=== PATIENT | female | born 1985 | race Caucasian/White ===

== ENCOUNTER 2017-12-27 15:15 | Inpatient (IN) | payer MEDICAID, SELFPAY ==
[2017-12-27] VITALS (13 sets, daily range): BP systolic 93–125; BP diastolic 52–79; PULSE 65–95; RESP 16–18; TEMP 35.7–36.9; O2SAT 98–99; BMI 25.3
[2017-12-27 15:13] LABS: ROM Internal Control Test YES-OK TO RESULT pt. (Internal QC)
[2017-12-27 15:14] LABS: ROM Patient Test POSITIVE (Negative)
[2017-12-27] MEDS: Lactated Ringers 1,000 ML 50 ML IV ×2 (15:27→16:27)
[2017-12-27 15:49] LABS: Absolute Lymphocyte Count 3.49 X10^3/ul (0.83-4.51); Absolute Neutrophil Count 11.6 X10^3/uL (2.0-7.7); Basophil# 0.03 X10^3/uL; Basophil% 0.2 % (0-1); Eosinophils% 1.2 % (0-5); Hematocrit 30.5 % (37-47); Hemoglobin 9.6 g/dl (12.0-15.0); Lymphocyte # 3.49 X10^3/ul (4.0); Lymphocyte % 21.5 % (19-41); Mean Corp Hgb Conc 31.5 g/gl (32-36); Mean Corpuscular Hgb 28.1 pg (27.0-32.0); Mean Corpuscular Volume 89.2 fL (81-99); Mean Platelet Vol. 9.6 fl (6.2-12.0); Monocyte# 0.84 X10^3/uL; Monocyte% 5.2 % (0-10); Neutrophil # 11.58 X10^3/uL (2.7-7.7); Neutrophil % 71.2 % (47-70); Platelet Count 381 K/mm3 (150-450); RBC Distribution Width SD 55.1 fl (35.1-43.9); Red Blood Count 3.42 M/mm3 (4.2-5.4); White Blood Count 16.3 K/mm3 (4.4-11.0)
[2017-12-27 15:53] LABS: POSITIVE COUNT NO; POSITIVE DIFFERENTIAL NO; POSITIVE MORPHOLOGY NO
--- NOTE | 2017-12-27 16:01 | PCM.HP.OB ---
History Date of Admission: 12/27/17 Final JOHANA: 01/17/18 Gestational age: 37 Weeks and 0 Days History of this : Patient reports a couple visits at [facility]. She reports an US at 33wks that gave her an EDC of 01/17/18. She thinks that she had another US earlier in the too. She reports 4 prior SVDs without complications. Pertinent Past Medical History: Asthma - not on meds Denies any surgeries Allergies ciprofloxacin [From Cipro] Allergy (Verified 12/27/17 15:25) Hives Penicillins Allergy (Verified 12/27/17 15:23) Unknown pt states as child Current Medications Acetaminophen (Tylenol) 325 - 650 mg PO Q4H PRN PRN PRN Reason: PAIN OR FEVER >100.4F Al Hydroxide/Mg Hydroxide (Mylanta Ii) 15 - 30 ml PO Q4H PRN PRN PRN Reason: INDIGESTION Citric Acid/Sodium Citrate (Bicitra) 30 ml PO UD PRN Lactated Ringer's () 1,000 mls @ 50 mls/hr IV .Q20H JOHNNY Nalbuphine HCl (Nubain) 5 - 10 mg IV Q3H PRN PRN PRN Reason: PAIN (4-10/10) Ondansetron HCl (Zofran) 4 mg IV Q8H PRN PRN PRN Reason: NAUSEA Promethazine HCl (Phenergan (Ll)) 6.25 - 12.5 mg IV Q4H PRN PRN; Protocol PRN Reason: IF NAUSEA PERSISTS Sodium Chloride () 5 - 15 ml IV UD JOHNNY Smoking Status: Current every day smoker Alcohol: None Drug Use: none - other than prescribed norco Number of Fetus(es): 1 Physical Exam General: Alert, Oriented x3 Abdomen: Soft, Non Tender, Non-Distended Presentation: Cephalic - compound presentation as hands in front Cervix Dilation (cm): 7 Station: -3 - membranes palpable Effacement (%): 70 Assessment/Plan 32yo female at 37 weeks in labor Admit to L&D Presentation - compound at this time, will attempt to gently move hands behind head once epidural in place Pain - getting epidural not Scant PNC - PNB, utox, social work consult GBS unknown - rapid GBS sent, patient negative for risk factors EFW - less than 4500g, patient with adequate pelvis Routine care
[2017-12-27 16:31] LABS: International Normalized Ratio 0.9; Prothrombin Time (Protime)PT. 12.3 SECONDS (11.7-14.9)
[2017-12-27 16:32] LABS: Partial Thromboplast Time 28.7 Seconds (24.1-36.2)
[2017-12-27] MEDS: Oxytocin 30 units/NS 500 ml 30 UNITS/500 ML IV.SOLN 167 UNITS IV (16:44)
[2017-12-27 17:07] LABS: Group B Strep DNA By PCR Negative (Negative); Internal Control PASS; Probe Check PASS; Specimen Processing Control PASS
--- NOTE | 2017-12-27 17:38 | OP.PCM_ITS ---
Delivery Final JOHANA: 01/17/18 Gestational age: 37 Weeks and 0 Days Indications: Patient presented in labor & compound presentation was noted as hands were in front of the head. Patient received epidural. A deceleration in the fht's was noted. When patient was checked the head was no longer palpated. Patient was taken to the OR where US showed oblique/compound presentation. Fht's were 90's-120's. Decision made to proceed with section. Indications for : Malpresentation, Nonreassuring Status Description of Procedure: Patient taken to OR where epidural anesthesia was dosed. She was prepped and draped in normal sterile fashion in a dorsal lithotomy position with a leftward tilt. After ensuring adequacy of anesthesia the Pfannensteil skin incision was made and carried through to the underlying fascia with a scalpel. The fascia was incised in the midline and carried laterally with the Ramos scissors. The rectus muscles were in the midline and the peritoneum was entered bluntly. The bladder flap was dissected down carefully with the Metzenbaum scissors and blunt dissection. The uterus was incised in a transverse fashion and then incision extended with cephalocaudad traction. The fetus was oblique with hands in front of the head. The head was gently brought to the uterine incision and the hands were gently moved. The head was brought to the incision in the flexed position and with good fundal pressure the head easily delivered. Gentle traction placed on head to allow delivery of anterior & posterior shoulders. No excess traction placed on head. The body delivered easily. The 3VC cord was clamped and cut. The was handed off to the waiting RN. The placenta was delivered w/ gentle traction and fundal massage and the uterus was exteriorized and cleared of all clots and debris. The uterine incision was closed with 1 vicryl suture in a running locked fashion. The bovie was used to further obtain further hemostasis of the uterine incision. A second imbricating layer of monocryl was placed. The uterus was returned to the peritoneal cavity. The pelvis was irrigated & then cleared of all clots and debris. The uterine incision was reexamined and found to be hemostatic. A stable hematoma on the right side of the uterus (near the incision) was noted & observed to be stable during the procedure. Some yuki was placed over the uterine incision due to the denuded areas. The parietal peritoneum was reapproximated with running 1 vicryl suture. The fascia was closed with looped PDS suture in a running standard fashion. The subcutaneous tissue was examined & any bleeding bovie cauterized. The subcutaneous tissue was reapproximated with 3-0 vicryl suture. The skin was closed in a subcuticular fashion by the MEDICARE BILLER with me present in the labor and delivery suite. I performed the remainder of the procedure w/ assistance. Amniotic Membrane Rupture Type: Spontaneous Amniotic Fluid Description: Clear Placenta Disposition: [facility] Specimen(s) sent to pathology: placenta Drain: Gutierrez to straight drain Fluids Replaced: 1500ml Cord Entanglement: None Cord Vessel Description: 3 Vessels Esitmated Blood Loss (ml): 800ml Infant Gender: Female (1 minute): 9 (5 minute): 9 Delayed cord clamping: No Pre-op Antibiotic Given: Ancef 2 grams IV x1 Complications: None
[2017-12-27] MEDS: Lactated Ringers 1,000 ML 100 ML IV (17:50)
--- NOTE | 2017-12-27 18:02 | PLAC_PTH ---
PATIENT: CLINT DONALDSON LOC: [facility] U#:[id number] AGE/SX: 32/F ROOM: WP011 RE12/27/[address]: Dr. Sonia Victoria MD : 1985 BED: 1 DIS: 12/30/2017 SPEC #: [id number] RECD: 12/27/17 19:24 STATUS: JOHN HELEN #: [id number] FLORY: 12/27/17 18:[address]: Sonia Victoria DEPT: SURGICAL PATHOLOGY RECD BY: Rebecca Garcia ENTERED: 12/28/17 09:13 SP TYPE: PLACENTA OTHR DR: Jojo Primary Care Phys Tissues: Placenta, NOS Procedures: Surgery Specimen Level V HEADER OPERATION: Primary section PRE-OP DIAGNOSIS: malpresentation, nonreassuring status TISSUE SUBMITTED: Placenta MICROSCOPIC DIAGNOSIS Placenta: Placental disc - third trimester placenta (400 gm). - Multiple areas of infarction (largest measuring 2.0 cm in greatest dimension). Membranes - no pathologic diagnosis. Umbilical cord - three blood vessels and no pathologic diagnosis. SJ:ulises 12/30/17 MICROSCOPIC DESCRIPTION Slides are reviewed. GROSS DESCRIPTION SPECIMEN: PLACENTA / CLINICAL INFORMATION: A. Weight: 2.387 kg B. Gestational Age: 37 weeks C. Sex: Female PLACENTAL WEIGHT (POST FIXATION): 400 gm PLACENTAL DIMENSIONS: 17 x 15 x 3 cm PLACENTAL SHAPE: Usual ovoid PLACENTAL WEIGHT FOR GESTATIONAL AGE: Within 10-99th percentile MEMBRANES - Present A. Insertion: Marginal B. Site of rupture from edge: 7 cm from edge of placental disc C. Color of membrane: Tenorio, mucoidy D. Abnormalities: None UMBILICAL CORD - Present A. Color: Tenorio-ocampo B. Insertion: Paracentral C. Length: 28 cm D. Diameter: 1 cm E. Number of vessels: Three F. Abnormalities: None PLACENTAL DISC - Present A. Color of surface: Tenorio-ocampo B. surface abnormalities: None C. Maternal cotyledons: Intact with minimal tears D. Attached retro placental clot: No clot E. Cut surface: Dark red and spongy F. Lesions: Sections reveal multiple indurated areas, the largest measuring 1.5 cm in greatest dimension. A focal firm area is also noted measuring 2 cm in greatest dimension. One of the areas appears to be congested. G. Separate clot: Absent SECTIONS SUBMITTED: 1. Membrane roll 2. Cord, peripheral indurated area 3. Cord, end and two lesions 4. Firm area, body of placenta including and maternal surfaces 5. Placental disc, and maternal surfaces, lesion 6. Placental disc, and maternal surfaces, two lesions 7. Body of placenta including maternal and surface and congested hemorrhagic area. KANDICE:ulises 12/29/17 TC:5 CPT: 33766
--- NOTE | 2017-12-27 18:46 | NURSING ---
Pre-op Ancef [address] Stewart prior to ; physician over-ride; PNC allergy as a child.
[2017-12-27 20:37] LABS: Chlamydia Trachomatis by PCR Negative (Negative); Neisserai gonorrhoeae by PCR Negative (Negative); Probe Check PASS; Sample Adequacy Control PASS; Specimen Processing Control PASS
[2017-12-27] MEDS: Ketorolac 30 MG/ML Syringe IV (23:21)
[2017-12-28] VITALS (17 sets, daily range): BP systolic 102–126; BP diastolic 54–74; PULSE 88–105; RESP 14–18; TEMP 36.3–37.1; O2SAT 18–99
[2017-12-28] MEDS: Lactated Ringers 1,000 ML 100 ML IV (02:26)
--- NOTE | 2017-12-28 04:36 | NURSING ---
Epidural catheter removed, blue tip intact.
[2017-12-28] MEDS: Ketorolac 30 MG/ML Syringe IV ×4 (05:18→23:12)
[2017-12-28 05:41] LABS: Hematocrit 24.6 % (37-47); Hemoglobin 7.8 g/dl (12.0-15.0); Mean Corp Hgb Conc 31.7 g/gl (32-36); Mean Corpuscular Hgb 28.5 pg (27.0-32.0); Mean Corpuscular Volume 89.8 fL (81-99); Mean Platelet Vol. 9.3 fl (6.2-12.0); Platelet Count 323 K/mm3 (150-450); RBC Distribution Width CV 17.1 % (11.6-14.6); Red Blood Count 2.74 M/mm3 (4.2-5.4); White Blood Count 13.7 K/mm3 (4.4-11.0)
[2017-12-28 05:43] LABS: Scan Indicated on CBC? Y/N NO
--- NOTE | 2017-12-28 08:50 | PCM.PN.OB ---
Subjective: c/o some pain, no N/v. tired, No CP/SOB - Physical Exam General: Alert, Cooperative, No apparent distress Abdomen: Soft, Distended - moderatly, softly, Tender - appropriately Skin: Incision - bandage clean, dry adn intact Vital Signs Temp Pulse Resp BP Pulse Ox 98.4 F 99 16 104/74 97 12/28/17 08:27 12/28/17 08:27 12/28/17 08:27 12/28/17 08:27 12/28/17 08:27 Oxygen Delivery Method Room Air Weight: 62.9 kg Body Mass Index (BMI) 25.3 Intake and Output for Last 24 Hours 12/26/17 12/27/17 12/28/17 22:59 23:59 23:59 Intake Total 1651 / 1651 Output Total 650 / 650 Balance 1001 / 1001 Laboratory Tests Past 24 Hrs 12/27/17 12/27/17 12/27/17 15:00 15:25 15:25 WBC 16.3 H RBC 3.42 L Hgb 9.6 L Hct 30.5 L MCV 89.2 MCH 28.1 MCHC 31.5 L RDW 17.0 H RDW Differential 55.1 H Plt Count 381 MPV 9.6 Immature Gran % (Auto) 0.700 Neut % (Auto) 71.2 H Lymph % (Auto) 21.5 [place] % (Auto) 5.2 Eos % (Auto) 1.2 Baso % (Auto) 0.2 Absolute Neuts (auto) 11.6 H Absolute Lymphs (auto) 3.49 Total Counted Not Reportable PT INR APTT Vag Amniotic Fld Detect POSITIVE H RPR Chlam trachomat DNA PCR Hep Bs Antigen Hepatitis C Ab (EIA) Hepatitis C Comment HIV 1&2 Antibody N.gonorrhoeae DNA (PCR) Rubella IgG Antibody Pending Group B Strep DNA Specimen Comment Blood Type Antibody Screen 12/27/17 12/27/17 12/27/17 15:25 15:25 15:25 WBC RBC Hgb Hct MCV MCH MCHC RDW RDW Differential Plt Count MPV Immature Gran % (Auto) Neut % (Auto) Lymph % (Auto) [place] % (Auto) Eos % (Auto) Baso % (Auto) Absolute Neuts (auto) Absolute Lymphs (auto) Total Counted PT INR APTT Vag Amniotic Fld Detect RPR Pending Chlam trachomat DNA PCR Hep Bs Antigen Pending Hepatitis C Ab (EIA) Pending Hepatitis C Comment Pending HIV 1&2 Antibody N.gonorrhoeae DNA (PCR) Rubella IgG Antibody Group B Strep DNA Specimen Comment Not Reportable Blood Type Antibody Screen 12/27/17 12/27/17 12/27/17 15:25 15:25 15:25 WBC RBC Hgb Hct MCV MCH MCHC RDW RDW Differential Plt Count MPV Immature Gran % (Auto) Neut % (Auto) Lymph % (Auto) [place] % (Auto) Eos % (Auto) Baso % (Auto) Absolute Neuts (auto) Absolute Lymphs (auto) Total Counted PT 12.3 INR 0.9 APTT 28.7 Vag Amniotic Fld Detect RPR Chlam trachomat DNA PCR Hep Bs Antigen Hepatitis C Ab (EIA) Hepatitis C Comment HIV 1&2 Antibody Pending N.gonorrhoeae DNA (PCR) Rubella IgG Antibody Group B Strep DNA Specimen Comment Blood Type A POSITIVE Antibody Screen NEGATIVE 12/27/17 12/28/17 18:08 05:30 WBC 13.7 H RBC 2.74 L Hgb 7.8 L Hct 24.6 L MCV 89.8 MCH 28.5 MCHC 31.7 L RDW 17.1 H RDW Differential 56.0 H Plt Count 323 MPV 9.3 Immature Gran % (Auto) Neut % (Auto) Lymph % (Auto) [place] % (Auto) Eos % (Auto) Baso % (Auto) Absolute Neuts (auto) Absolute Lymphs (auto) Total Counted PT INR APTT Vag Amniotic Fld Detect RPR Chlam trachomat DNA PCR Negative Hep Bs Antigen Hepatitis C Ab (EIA) Hepatitis C Comment HIV 1&2 Antibody N.gonorrhoeae DNA (PCR) Negative Rubella IgG Antibody Group B Strep DNA Negative Specimen Comment Blood Type Antibody Screen Assessment/Plan POD#1 doing well routine care SS consult pending, poor care
[2017-12-28 10:50] LABS: Rubella IgG 71.8 IU/mL
[2017-12-28] MEDS: Senna/Docusate Sodium 1 Tablet PO (11:26)
[2017-12-28 12:26] LABS: HIV - WCH Non-Reactive (Nonreactive)
[2017-12-28] MEDS: 0.9% Saline Lock 10 ML Syringe IV (17:28)
[2017-12-28 18:57] LABS: Hematocrit 25.7 % (37-47); Mean Corp Hgb Conc 31.1 g/gl (32-36); Mean Corpuscular Volume 89.9 fL (81-99); Mean Platelet Vol. 9.2 fl (6.2-12.0); Platelet Count 335 K/mm3 (150-450); RBC Distribution Width CV 17.1 % (11.6-14.6); RBC Distribution Width SD 56.6 fl (35.1-43.9); Red Blood Count 2.86 M/mm3 (4.2-5.4); White Blood Count 13.3 K/mm3 (4.4-11.0)
[2017-12-28 18:59] LABS: Scan Indicated on CBC? Y/N NO
[2017-12-28] MEDS: oxyCODONE 5 MG Tablet PO (20:17)
[2017-12-29] MEDS: oxyCODONE 5 MG Tablet PO ×5 (00:47→21:59)
[2017-12-29 04:29] VITALS: BP 105/55; PULSE 75; RESP 16; TEMP 36.6; O2SAT 97
[2017-12-29] MEDS: Ketorolac 30 MG/ML Syringe IV ×2 (05:13→11:27)
--- NOTE | 2017-12-29 06:01 | PCM.PN.OB ---
Subjective: pain well controlled, average lochia. No N/V. No SOB/lightheadedness - Physical Exam General: Alert, Cooperative, No apparent distress Abdomen: Soft, Tender - approopriately Skin: Incision - bandage clean, dry and intact Vital Signs Temp Pulse Resp BP Pulse Ox 97.9 F 75 16 105/55 L 97 12/29/17 04:29 12/29/17 04:29 12/29/17 04:29 12/29/17 04:29 12/29/17 04:29 Oxygen Delivery Method Room Air Weight: 62.9 kg Body Mass Index (BMI) 25.3 Intake and Output for Last 24 Hours 12/27/17 12/28/17 12/29/17 23:59 23:59 23:59 Intake Total 2875 / 2875 Output Total 1950 / 1950 Balance 925 / 925 Microbiology Past 72 Hours 12/27/17 Unknown Group B Streptococcus Culture - Preliminary Genital vaginal Laboratory Tests Past 24 Hrs 12/27/17 12/27/17 12/28/17 15:25 15:25 18:40 WBC 13.3 H RBC 2.86 L Hgb 8.0 L Hct 25.7 L MCV 89.9 MCH 28.0 MCHC 31.1 L RDW 17.1 H RDW Differential 56.6 H Plt Count 335 MPV 9.2 HIV 1&2 Antibody Non-Reactive Rubella IgG Antibody 71.8 Assessment/Plan POD#2 doing well bottlefeeding likely d/c tomorrow ok to d/c IV tolerating acute blood loss anemia superimposed on chronic antepartum anemia well start Fe
[2017-12-29 10:41] VITALS: BP 115/62; PULSE 100; RESP 18; TEMP 36.8
[2017-12-29 11:27] LABS: HEPATITIS B SURFACE AG Negative (Negative); Hep C Antibodies <0.1 s/co ratio (0.0-0.9)
[2017-12-29] MEDS: 0.9% Saline Lock 10 ML Syringe IV (11:27)
[2017-12-29] MEDS: Senna/Docusate Sodium 1 Tablet PO (11:27)
[2017-12-29] MEDS: Ferrous Sulfate 325 MG Tablet PO (11:28)
[2017-12-29] MEDS: Prenatal Vits Tablet 1 TABLET PO (11:28)
[2017-12-29 14:00] VITALS: BP 121/68; PULSE 88; RESP 16; TEMP 36.8
[2017-12-29] MEDS: Ibuprofen 600 MG Tablet PO (17:48)
[2017-12-29 20:25] VITALS: BP 125/60; PULSE 88; RESP 16; TEMP 36.7
[2017-12-30] MEDS: Ibuprofen 600 MG Tablet PO ×3 (01:27→16:38)
[2017-12-30 02:00] VITALS: BP 133/76; PULSE 94; RESP 18; TEMP 36.4
[2017-12-30] MEDS: oxyCODONE 5 MG Tablet PO ×3 (02:45→13:58)
[2017-12-30 08:00] VITALS: BP 106/64; PULSE 83; RESP 16; TEMP 36.9
[2017-12-30] MEDS: Senna/Docusate Sodium 1 Tablet PO (08:58)
[2017-12-30] MEDS: Ferrous Sulfate 325 MG Tablet PO (09:00)
--- NOTE | 2017-12-30 10:10 | CASEMGMT ---
Social Work - Labor and Delivery Unit Social Work Assessment completed. Refer to documentation below for further details. Date of Referral: 12-28-17 Time of Referral: 829 Referred By: verbal referral from nursing staff and from activities counselor, Dr. Boogie Reason for Referral: no care, concern for maternal drug use during , baby to have JOVANI scoring for positive drug screen at delivery will be hospitalized for 3-5 days for monitoring. Date of Intervention: 12-30-17 Time of Intervention: 1009 History obtained from: Medical record and patient/mother of baby (MOB) Cheryle Simmons Household composition: MOB reports herself, father of baby (FOB), and 4 other children are in the home. MOB reports has lived in this home with FOB for the last 2-3 months. MOB reports home situation is safe and adequate, denies issues with rent/utilities. Patient's parent/guardian status: MOB reports has been with reported FOB, Jesus Michel (age 34) on and off for a couple of years. MOB denies any form of abuse in relationship with FOB. [place], Liz Michel, is the first child for MOB and FOB together. MOB and FOBs Minor Children: Ondina, age 13 not in the custody of MOB. MOB reports had this child for 2 years, then became homeless, so [facility] father took custody of this child. MOB reports this was to be temporary but the father filed for full custody. MOB reports to feel as if was tricked at the time. MOB reports to be able to visit with Ondina regularly though did not comment on when the last time has seen Ondina. Arsenio, age 10 in [facility] custody and living in [facility] home Chan, age 5 in [facility] custody and living in [facility] Gabriela age 1.5 years in [facility] custody, but reportedly spends a lot of time with other family members, a grandmother and great grandmother. MOB reports will have Gabriela for a couple of months at a time then the child will go to stay with a grandparent for a week or two. MOB reports the other children spend time with family, but due to school the older children dont spend as much time away from the home as Gabriela. Priyanka, age 5. Biological child of FOB, who FOB reportedly obtained custody of a year ago. Lives in the home. , Liz Michel - MOB intending for baby to live in the family home with MOB and FOB. Medical History: MOB is G5, P4 to 5 after delivery of . MOB with limited to no care. MOB is reporting a couple of visits to [facility] but no documentation of such, or other doctor visits this . Baby delivered via stat caesarian section at 37 weeks gestation, weighing 5 pounds 8 ounces. Apgars 9 and 9. Baby positive for opiates in urine sample right after delivery. Educational Status: MOB reports that got through the 11th grade. Denies that was ever on an IEP in school or to have learning disabilities MOB reports to be able to read, write, and understand what is read. Financial Status: MOB does not work. FODoni reportedly gets SSI for epilepsy and then some form of culver assistance for daughter Priyanka. Supplies: MOB reports to have needed infant supplies. Record indicates MOB did not have a car seat at time of delivery, but to have resources for such before discharge. MOB reporting today that has a car seat, just not at the hospital yet. MOB reports to have a playpen, baby swing, clothing, diapers, wipes, some bottles and 3 cans of formula at home. Childcare/Caregiver(s): MOB is primary caregiver to [facility], though MOB admits the 1.5 year old child spends a lot of time with grandparents. Transportation: MOB reports to have transportation. MOB does not have a license but reports that KATERINE does and is able to drive, even with diagnosis of epilepsy. Programs/Agencies Involved: MOB reports to have medical and food assistance through [facility], and then [facility] for [place] through [facility]. MOB reports has not had a chance to switch everything to [facility] and is not sure how to do this. Reports history of [employer] and then current head start involvement for son Chan. Children Services/Legal Issues: No reported legal issues. MOB reports history of [facility] ([facility] involvement 3 years ago due to truancy issues with Arsenio. MOB denies any involvement with children services since that one time, or a current case with children services. MOB reports FOB had a case with [facility] due to Annabelles mothers reported drug use, which resulted in FOB obtaining custody of Priyanka last year. Behavioral Health Issues: Mental Health: MOB reports as a teenager had depression and anxiety, was treated with medication and had counseling. MOB reports never thought that really needed medicine. MOB denies any depression, anxiety, or other mental health issues as an adult. Also denies any depression issues. Denies any history of thoughts, plans, or attempts to harm self/suicide. MOB stated when asked about suicide I have too many reasons to live. Substance Use: MOB reports to get sick when drinks alcohol, so does not drink. MOB admits to marijuana use as a teen, but denies use as an adult. MOB denies illicit drug use such as heroin, cocaine, meth, or other narcotics. MOB reports was given a prescription of hydrocodone in October related to excruciating tooth pain. MOB reports did not know it was bad to take the medicine and that could get into trouble for taking this. MOB reports took half tablets to extend the prescription, and that in the last couple of weeks took a total of 2.5-3 tablets. MOB admits to using prescription within a day or so of delivery. Note, MOB has the pill bottle for hydrocodone in her purse, along with other empty pill bottles. MOB showed this poem writer the pill bottle of hydrocodone, dated 11-11-17 and prescribed bay by a Dr. Snowden, with a count of 10 pills. MOB reporting that was able to make this prescription last from October to Mid-December. No toxicology done on MOB at time of delivery. Babys urine drug screen positive for opiates. JOVANI scoring ranging from 1-4. Depression/Shaken Baby/Safe Sleeping: MOB denies any history of mental health issues. MOB educated to safe sleeping. MOB educated to shaken baby. MOB reports would set baby down if feeling overwhelmed and frustrated. MOB reports to walk away from all of the kids when feeling frustrated, and that MOB is able to block the kids out, a skill MOB reports that may have learned from MOBs own mother. Family/Social Stressors: MOB single mother, non-custody of oldest child, history of children services though reports this was 3 years ago. Questionable financial stability as MOB does not work, does not get culver assistance, does not disclose any income for self other than FOBs income from [employer] and possible culver assistance. MOB with housing changes, moving from [facility] to [facility] 2-3 months ago; MOB not disclosing who as living with in [facility] only reporting that wanted to be more independent from the family that MOB was staying with. MOB reports FOB was in a car accident a few weeks ago, totaling the car, so family had to get a new car. MOB reports some ambivalence about this , realizing was later and then trying to decide if should make an adoption plan for baby. MOB reports after talking with FOB decision made to keep and parent baby, and that both adults believe selves to be capable of financially supporting this child. Baby currently receiving JOVANI scoring due to positive drug screen at delivery. Support Systems: MOB reports her mother is biggest support, as well as MOBs grandmother tries to be supportive, but is getting older. MOB reports FOBs family is supportive. MOB reports someone in the family shows up every day and often brings things MOB and FOB have been talking about needing to get. MOB reports to feel support is adequate, though MOB reports all family lives about 20-30 minutes away. ASSESSMENT: MOB was cooperative with social work visit, though appearing guarded and tense at the onset of visit. As conversation went on MOB appeared to relax body/posture. MOBs affect constricted, eye contact normal. MOB states to feel happy, denies depression, and reports desire to keep and parent baby at this point. MOB is denying mental health history, as well as denies any drug abuse issues currently or during . MOB maintains that opiates found in babys system is related to a prescription MOB obtained in October. MOB is reporting to have needed baby supplies, and reports to be able to financially care for new addition to the household. MOB voices interest in having information on [facility] resources, where to turn, and numbers to contact. Educated MOB that children services does need to be called due to babys positive drug screen and risk factors present. MOB did not exhibit any outward response about need to call children services, just stared at this poem writer. PLAN: Social work to continue to follow and assist this family. Plan to call Children Services in [facility] due to infants drug screen, no care, relocation from [place] to [facility] a couple of months ago and not yet connected with services in this area/limited support, and then history of children services involvement. -DIRK Mariee, NATURAL SCIENCES DEPARTMENT CHAIR
[2017-12-30] MEDS: Prenatal Vits Tablet 1 TABLET PO (12:17)
--- NOTE | 2017-12-30 12:34 | PCM.DCCSEC ---
Discharge Diet: No Restrictions Discharge Activity: May Not Drive - for 2 weeks or while taking narcotic pain meds., May Shower, May Take a Tub Bath - in 7 days. May resume sexual activity in: 4-6 weeks Lifting Restrictions: 20 pounds Additional Activity Instructions:: Nothing in the vagina for 4-6 weeks. You may return to work/school in 6 weeks. Call your doctor if your incision/area has: Continuous Slow Oozing, Sudden Increased Bleeding, Increased Pain/ Swelling, Increased Redness, Foul Smelling Discharge Call your doctor if you observe: Fever of 101 or Higher, Inability to urinate, Inability to have a bowel movement, Using more than one pad per hour, Calf discomfort Suture Line Care: Avoid Pulling/Pushing, Avoid Pinching/Bending Remove Dressing in (days):: 3 Cleanse incision/area with: Soap & Water - Once dressing is removed by 5 days , Keep Dressing Clean & Dry Additional Instructions: If you experience any of the following, contact your healthcare provider. Bleeding that soaks a pad every hour for 2 hours Fever 100.4 or higher Unrelieved incision or abdominal pain Swelling, redness, discharge or bleeding from your incision or episiotomy site Your incision begins to separate Problems urinating (including inability to urinate or burning while urinating). Visual changes Severe headache Flu-like symptoms Pain or redness in one of both of your breasts Pain, warmth, tenderness or swelling in your legs, especially the calf area Frequent nausea and vomiting Symptoms of depression or anxiety If you experience any of the following, call 911 or go to the nearest Emergency Room. Chest pain Problems breathing Seizure activity Partial or complete paralysis of a body part, slurred speech, weakness or drooping of the face, or a sudden inability to walk or hold your balance Allergies/Adverse Reactions: Allergies ciprofloxacin [From Cipro] Allergy (Verified 12/27/17 15:25) Hives Penicillins Allergy (Verified 12/27/17 15:23) Unknown pt states as child Medications to take at Discharge Docusate Sodium [Colace] 100 mg PO DAILY 12/27/17 Hydrocodone Bitart/Apap 5-325 [[place] 5MG-325MG] 1 - 2 tablet PO Q4H PRN PRN 12/27/17 Vits [Prenatabs FA ] 12/27/17 Follow-Up: Call to make an appointment with your doctor for an incision check in 1-2 weeks. You will also need a 6 week post- follow up appointment. Please Follow Up With: [facility] When: 1-2 weeks for incision check appt Please Follow Up With: [facility] When: 6 weeks PP Primary Care Physician: Care Physician,No Primary [Primary Care Provider] - Proposed Discharge Date: 12/30/17
--- NOTE | 2017-12-30 12:37 | DCINST_ITS ---
Discharge Diet: No Restrictions Discharge Activity: May Not Drive - for 2 weeks or while taking narcotic pain meds., May Shower, May Take a Tub Bath - in 7 days. May resume sexual activity in: 4-6 weeks Lifting Restrictions: 20 pounds Additional Activity Instructions:: Nothing in the vagina for 4-6 weeks. You may return to work/school in 6 weeks. Call your doctor if your incision/area has: Continuous Slow Oozing, Sudden Increased Bleeding, Increased Pain/ Swelling, Increased Redness, Foul Smelling Discharge Call your doctor if you observe: Fever of 101 or Higher, Inability to urinate, Inability to have a bowel movement, Using more than one pad per hour, Calf discomfort Suture Line Care: Avoid Pulling/Pushing, Avoid Pinching/Bending Remove Dressing in (days):: 3 Cleanse incision/area with: Soap & Water - Once dressing is removed by 5 days , Keep Dressing Clean & Dry Additional Instructions: If you experience any of the following, contact your healthcare provider. * Bleeding that soaks a pad every hour for 2 hours * Fever 100.4 or higher * Unrelieved incision or abdominal pain * Swelling, redness, discharge or bleeding from your incision or episiotomy site * Your incision begins to separate * Problems urinating (including inability to urinate or burning while urinating) . * Visual changes * Severe headache * Flu-like symptoms * Pain or redness in one of both of your breasts * Pain, warmth, tenderness or swelling in your legs, especially the calf area * Frequent nausea and vomiting * Symptoms of depression or anxiety If you experience any of the following, call 911 or go to the nearest Emergency Room. * Chest pain * Problems breathing * Seizure activity * Partial or complete paralysis of a body part, slurred speech, weakness or drooping of the face, or a sudden inability to walk or hold your balance Allergies/Adverse Reactions: Allergies ciprofloxacin [From Cipro] Allergy (Verified 12/27/17 15:25) Hives Penicillins Allergy (Verified 12/27/17 15:23) Unknown pt states as child Medications to take at Discharge Docusate Sodium [Colace] 100 mg PO DAILY 12/27/17 Hydrocodone Bitart/Apap 5-325 [[place] 5MG-325MG] 1 - 2 tablet PO Q4H PRN PRN 09/05 Vits [Prenatabs FA ] 12/27/17 Follow-Up: Call to make an appointment with your doctor for an incision check in 1-2 weeks. You will also need a 6 week post- follow up appointment. Please Follow Up With: [facility] When: 1-2 weeks for incision check appt Please Follow Up With: [facility] When: 6 weeks PP Primary Care Physician: Care Physician,No Primary [Primary Care Provider] - Proposed Discharge Date: 12/30/17
--- NOTE | 2017-12-30 12:37 | PCM.DC.SUM ---
Discharge Date and Diagnosis - Problem List Patient Problems: Active and Suspected Problems No care in current (Acute) Hand presentation (Acute) Delivery by section of full-term infant (Acute) Date of Admission: 12/27/17 Date of Discharge: 12/30/17 - Primary Discharge Diagnosis Stable POD #3 s/p LTCS for compound malpresentation and intolerance to labor, Normal Course - Secondary Discharge Diagnosis No Care Hospital Course and Treatment Operations: - - Low Transverse Section Summary of Care Provided: The patient is a 32 year old F [] Discharge Diet: No Restrictions Discharge Activity: May Not Drive - for 2 weeks or while taking narcotic pain meds., May Shower, May Take a Tub Bath - in 7 days. May resume sexual activity in: 4-6 weeks Additional Activity Instructions:: Nothing in the vagina for 4-6 weeks. You may return to work/school in 6 weeks. Call your doctor if your incision/area has: Continuous Slow Oozing, Sudden Increased Bleeding, Increased Pain/ Swelling, Increased Redness, Foul Smelling Discharge Call your doctor if you observe: Fever of 101 or Higher, Inability to urinate, Inability to have a bowel movement, Using more than one pad per hour, Calf discomfort Suture Line Care: Avoid Pulling/Pushing, Avoid Pinching/Bending Remove Dressing in (days):: 3 Cleanse incision/area with: Soap & Water - Once dressing is removed by 5 days , Keep Dressing Clean & Dry Home Medications: Medications to take at Discharge Docusate Sodium [Colace] 100 mg PO DAILY 12/27/17 Hydrocodone Bitart/Apap 5-325 [[place] 5MG-325MG] 1 - 2 tablet PO Q4H PRN PRN 12/27/17 Vits [Prenatabs FA ] 12/27/17 Primary Care Physician: Care Physician,No Primary [Primary Care Provider] - Please Follow Up With: [facility] When: 1-2 weeks for incision check appt Please Follow Up With: [facility] When: 6 weeks PP Patient Instructions: After a Disposition: Home Patient Condition:: Good Meaningful Use Info Meaningful Use Diagnoses (Choose all that apply): None applicable
--- NOTE | 2017-12-30 12:40 | DS.PCM_ITS ---
Discharge Date and Diagnosis - Problem List Patient Problems: Active and Suspected Problems No care in current (Acute) Hand presentation (Acute) Delivery by section of full-term infant (Acute) Date of Admission: 12/27/17 Date of Discharge: 12/30/17 - Primary Discharge Diagnosis Stable POD #3 s/p LTCS for compound malpresentation and intolerance to labor, Normal Course - Secondary Discharge Diagnosis No Care Hospital Course and Treatment Operations: - - Low Transverse Section Summary of Care Provided: The patient is a 32 year old F [] Discharge Diet: No Restrictions Discharge Activity: May Not Drive - for 2 weeks or while taking narcotic pain meds., May Shower, May Take a Tub Bath - in 7 days. May resume sexual activity in: 4-6 weeks Additional Activity Instructions:: Nothing in the vagina for 4-6 weeks. You may return to work/school in 6 weeks. Call your doctor if your incision/area has: Continuous Slow Oozing, Sudden Increased Bleeding, Increased Pain/ Swelling, Increased Redness, Foul Smelling Discharge Call your doctor if you observe: Fever of 101 or Higher, Inability to urinate, Inability to have a bowel movement, Using more than one pad per hour, Calf discomfort Suture Line Care: Avoid Pulling/Pushing, Avoid Pinching/Bending Remove Dressing in (days):: 3 Cleanse incision/area with: Soap & Water - Once dressing is removed by 5 days , Keep Dressing Clean & Dry Home Medications: Medications to take at Discharge Docusate Sodium [Colace] 100 mg PO DAILY 12/27/17 Hydrocodone Bitart/Apap 5-325 [[place] 5MG-325MG] 1 - 2 tablet PO Q4H PRN PRN 09/05 Vits [Prenatabs FA ] 12/27/17 Primary Care Physician: Care Physician,No Primary [Primary Care Provider] - Please Follow Up With: [facility] When: 1-2 weeks for incision check appt Please Follow Up With: [facility] When: 6 weeks PP Patient Instructions: After a Disposition: Home Patient Condition:: Good Meaningful Use Info Meaningful Use Diagnoses (Choose all that apply): None applicable
[2017-12-30 13:55] VITALS: BP 121/60; PULSE 99; TEMP 36.9
--- NOTE | 2017-12-30 14:00 | CASEMGMT ---
Social Work - Labor and Delivery Unit Called [facility] Children Services ([facility]). Spoke with Henny in the intake department. At onset of referral, January found that mother of baby (MOB) has an open case with [facility] ([facility]) with a Aleida Fox as the worker. January provided this wrier the number to [facility] referral hotline, as this MOB with an open case there, current referral should go to same on [facility]. [phone] is the hotline number. This song writer approached by nursing staff who reports that MOB went over 4 hours feeding the baby, telling nursing that had been letting baby sleep. Nursing with concern that MOB went over the 4 hours, with recommendation of feeding newborns every 2-4, and that MOB only fed baby with prompting. MOB is not a first time mother, so thought is that MOB would be aware of feeding schedule and recommendations. Called [facility] and spoke with Pebbles Padron on the hotline. Informed Pebbles this family reportedly with an open case with [facility] already. Provided new referral due to baby, and the babys positive drug screen at time of delivery, let [facility] know that MOB produced an empty prescription bottle for 10 pills, dating from October and stating this is what MOB was taking and why baby is positive. Informed Pebbles of no care to speak of or documentation verifying there were care visits in mothers current medical record. Informed of MOB needing feeding reminders for this baby, recent move from [place] to [facility] and not yet transferring JFS and WIC, indicating that was not sure how to go about doing this, and MOBs denial of any children service involvement since 3 years ago. Pebbles took information and will let the assigned worker to this family know of new baby and concerns. Plan: Social work following. -YONATHAN Mariee, BOOK TRIMMER
--- NOTE | 2017-12-30 15:15 | CASEMGMT ---
Social Work - Labor and Delivery Unit Met with mother of baby (MOB) in room to provide [facility] resources, as well as to talk about current children services case and MOBs report to this video game script writer that has had no case since 3 years ago. Upon entering the room the reported father of baby (FOB) holding baby. FOB was gentle with baby, smiling and gazing at baby. FOB was intrusive however when this video game script writer was trying to review resources, asking MOB where [employer]Eusebia sprite is and then making jokes that dads get thirsty too. Provided resources list of social service agencies in [facility] and verbally went through the list. FOB interjected that [employer] just provided the family with a new car seat today, and that KATERINE just actually came from his car seat class to the hospital. FOB left midway through the conversation as reported need to go and pick the kids up from school. After FOB left, baby was placed back in crib by FOB. gas systems worker continued to reviewed resources with MOB. Provided MOB with information on depression, help me grow, moms support group, and WIC application. Educated MOB that MOB needs to call [facility] to have case transferred from [place] to [place]. Directed MOB to also call [facility] for the same. MOB reports just got a phone number for the regulatory affairs coordinator and will be calling for an appointment. MOB reports intent to call [facility] today. gas systems worker addressed with MOB reports that MOB has a current case with [facility] and this video game script writer with question as to MOB's previous reports of no involvement other than 3 years ago. MOB expressed that was confused about what this video game script writer was telling this video game script writer, reporting that the recent case was to be closed. This video game script writer attempted to discuss MOBs report of last case 3 years ago, and MOB denial of any other children services involvement. MOB did not respond or give reasons as to why MOB did not disclose current and recent involvement, expressing that is confused about what this video game script writer is saying. Educated that this video game script writer called [facility] to make a report and found out about the open [place] Case, so then called [facility] with current referral, since case is still open in [facility]. MOB kept repeating that was confused. Educated MOB, and reminded MOB that this video game script writer called children services due to positive drug screen in baby, as well as other risk factors present. MOB then stated Oh, about this video game script writer making a referral. MOB then got on the phone and tried to call [facility] about why a case was still open, but then appeared to get disconnected. MOB reports that may have the workers number at home as gets cards from everyone. MOB appearing to have some disconnection in understanding what this video game script writer was trying to say about concern why MOB did not disclose accurate history with children services, or seem to remember why this video game script writer was calling children services in the first place, at least until this video game script writer reminded MOB. This video game script writer broached with MOB feeding. MOB reports trying to feed baby every 2-3 hours as the baby seems hungry. Baby was sleeping at this point. MOB looked over at baby, smiled and touched baby at this point. Nursing came in when social science manager was in room and reminded MOB as to feeding times. At that point baby was starting to wake up and fuss, so MOB reported that would feed baby. This video game script writer left room, but reinforced to MOB that children services will be making contact with MOB at some point and encouraged MOB to follow through with resources provided today. Resources given: General list of [facility] resources including parents support, in-kind help, counseling. Handouts on moms support group, help ME grow, shaken baby/tips to soothe baby, and safe sleeping. depression packet. [facility] applications. Plan: Social work remains available should needs arise before discharge. At this point, children services has been notified and made aware of planned discharge today. [facility] to follow family in the community. MOB has been given community resources for [facility]. -YONATHAN Mariee, HELP DESK AGENT
--- NOTE | 2017-12-30 15:15 | PCM.PN.BLA ---
Progress Note S: Patient standing at bedside, changing 's diaper. Patient declines any issues at this time. Patient reports incisional pain is well controlled. Patient reports tolerating formula well. Notes that vaginal bleeding has decreased since yesterday. O: VSS, Afebrile. Patient rating pain 6-7/10 Nipples without cracks, breasts soft Dressing dry and intact +2/4 reflexes in LE, no edema noted Scant rubra lochia A: 32 y/o s/p LTCS for malpresentation and intolerance to labor, Normal PP course P: 1) Discharge to home today 2) Anticipatory PP teaching done 3) RTC in 1-2 weeks for incision check and then at 6 week PP for visit. Zaynab Peterson CNM
--- NOTE | 2017-12-30 15:30 | CASEMGMT ---
Social Work - Labor and Delivery Unit Received a call from a Aleida Murcia, [facility] ([facility]), who reports to be at the hospital and here to see MOB and baby. Met Aleida upon arrival to the unit (card produced, office number is [phone]). Aleida reports [facility] is trying to determine safe disposition for baby, uncertain if baby going home with MOB is safe at this time, that agency wants to have a meeting at the agency with MOB and MOB's support people to determine whether safety plan for mom and baby can be made, or whether [facility] will need to file for emergency custody of baby. [facility] asking if babys discharge can be held until 12-31-17 so that meeting can take place. [facility] is concerned that if MOB leaves with baby tonight MOB will disappear, as MOB apparently disappeared for about 6 weeks, during the time that [facility] was trying to investigate some concerns. Called pediatric hospitalist to review what this documentation writer has learned of MOBs history. In light of safety concerns and MOBs reported erratic behavior (such as disappearing for 6 weeks and not making contact with children services when active investigation occurring), and in light of other risk factor of no care, MOB not disclosing truthful information to this documentation writer, and baby having opiates in system after ) decision made to not discharge baby to help ensure safe disposition. Updated [facility] Aleida Murcia that baby can stay another night. Per Aleida, team meeting will be at 1000 on 12-31-17, with [facility] to call this documentation writer with update directly after. Updated nursing staff. Aleida to update MOB. Note, did let Aleida know of babys JOVANI scores, as well as the reports this documentation writer received about MOB leaving baby unattended in room last evening, and educated from staff that MOB cannot leave baby alone, as well as MOB indicating that did not know this wasnt okay. Plan: Social work to follow. MOB's discharged to still occur today, and would be given option of staying in a courtesy room to be close to baby. Baby remains hospitalized as [facility] works on a safe disposition for baby. -YONATHAN Mariee, CATH LAB RADIOLOGICAL TECHNOLOGIST
[2017-12-31 11:13] LABS: Pathology Specimen OB SEE PATHOLOGY REPORT
[2018-01-01 02:58] LABS: Rapid Plasmin Reagin (RPR) NONREACTIVE (NONREACTIVE)
== END 2017-12-30 16:30 | disposition home or self-care (01) | DRG 370 ==
LOC: WPOUT 15:25
PROVIDERS: Obstetrics & Gynecology; Admitting Provider Obstetrics & Gynecology; Visit Provider Obstetrics & Gynecology
DX: O32.6XX0 Maternal care for compound presentation, not applicable or unspecified (principal); O99.02 Anemia complicating childbirth; D62 Acute posthemorrhagic anemia; O90.81 Anemia of the puerperium; O76 Abnormality in fetal heart rate and rhythm complicating labor and delivery; O99.334 Smoking (tobacco) complicating childbirth; D64.9 Anemia, unspecified; Z3A.49 Greater than 42 weeks gestation of pregnancy; Z37.0 Single live birth; O09.33 Supervision of pregnancy with insufficient antenatal care, third trimester
CPT/HCPCS: 59050; 76815; 84112; 85025; 85027; 85610; 85730; 86592; 86703; 86762; 86803; 86850; 86900; 87081; 87340; 87491; 87591; 87653; 88307; 94762; 99218; J7120; A4216; G0378